=== PATIENT | male | born 1970 | race Caucasian/White ===

== ENCOUNTER 2022-03-08 08:00 | Outpatient (CLI) | payer BC | END 2022-03-08 08:01 | disposition home or self-care (01) | LOC: ULT 08:00 | PROVIDERS: ATTEND Family Medicine | DX: R79.89 Other specified abnormal findings of blood chemistry (principal); R16.0 Hepatomegaly, not elsewhere classified; R93.2 Abnormal findings on diagnostic imaging of liver and biliary tract; N28.1 Cyst of kidney, acquired | CPT/HCPCS: 76705 ==